=== PATIENT | male | born 1955 | race Caucasian/White ===

== ENCOUNTER 2016-04-27 08:28 | Day surgery (SDC) | payer OTHER ==
[~2016-04-27 08:28] MED LIST: FENTANYL 250 MCG/5 ML AMP IV PRN; IV START KIT ONE; LACTATED RINGERS 1,000 ML IV SCH; LACTATED RINGERS 1,000 ML ONE; MIDAZOLAM HCL 5 MG/5 ML VIAL IV PRN
[2016-04-27] MEDS ORDERED: PROPOFOL 20 ML IV ONE (08:40)
[2016-04-27] MEDS ORDERED: FENTANYL 250 MCG/5 ML AMP ONE (08:41)
--- NOTE | 2016-05-01 14:00 | SURGPATH ---
[facility] [address] [place] [id number] Patient Name: CHRISTIANO ROMAN MR#: [id number] : 1955 Gender: M Specimen #: [id number] Collected: 04/27/2016 Received: 04/28/2016 Reported: 05/01/2016 Submitting Phys: YOHAN GILES Copy To Phys: LENKA ACEVEDO [facility] Clinical History / Pre-Operative Diagnosis: screening colonoscopy, history of polyps with dysplasia Specimen Source / Surgical Procedure Performed: Descending colon polyp at 40 cm Interpretation: DESCENDING COLON, POLYP AT 40 CM, BIOPSY: - TUBULAR ADENOMA Electronically Signed Out Kayleigh Huerta M.D. Gross Description: The specimen is received in formalin labeled with the patient's name and "descending colon polyp at 40 cm". The specimen consists of a single fragment of mujica soft tissue, 0.4 cm in greatest dimension. Submitted in toto in one cassette BHAKTI Marquis Microscopic Description: Sections show fragments of adenomatous colonic mucosa without high grade dysplasia. 1: 77447 D12.4
== END 2016-04-27 09:52 | disposition home or self-care (01) ==
LOC: SDC 08:28
PROVIDERS: ATTEND Internal Medicine Gastroenterology
PROC: 0DBM8ZX Excision of Descending Colon, Via Natural or Artificial Opening Endoscopic, Diagnostic (ICD-10-PCS; principal; 2016-04-27)
DX: Z12.11 Encounter for screening for malignant neoplasm of colon (principal); D12.4 Benign neoplasm of descending colon; Z86.010 Personal history of colon polyps; K57.30 Diverticulosis of large intestine without perforation or abscess without bleeding; E78.5 Hyperlipidemia, unspecified; I10 Essential (primary) hypertension; F17.210 Nicotine dependence, cigarettes, uncomplicated; E66.9 Obesity, unspecified; Z68.43 Body mass index [BMI] 50.0-59.9, adult; F41.9 Anxiety disorder, unspecified; Z88.5 Allergy status to narcotic agent
CPT/HCPCS: 45385; J3010; J7120